=== PATIENT | male | born 1955 | race Caucasian/White ===

== ENCOUNTER → 2023-06-20 08:59 | Outpatient (REF) | payer MEDICARE, BC, SELFPAY ==
[2023-06-20 09:59] LABS: Hematocrit 42.9 % (39.0-52.0); Hemoglobin 14.4 g/dL (13.0-18.0); Mean Corp Hgb Conc. 33.6 g/dL (33.0-37.0); Mean Corpuscular Hgb 30.4 pg (27.0-31.0); Mean Corpuscular Volume 90.7 fL (80.0-94.0); Mean Platelet Volume 11.1 fL (7.4-10.4); Platelet Count 237 10^3/uL (130-400); Red Blood Cell Count 4.73 10^6/uL (4.70-6.10); Red Cell Dist. Width 14.1 % (11.5-14.5); White Blood Cell Count 4.8 10^3/uL (4.8-10.8)
[2023-06-20 12:37] LABS: Blood Urea Nitrogen 27 mg/dl (9-20); Calcium 9.4 mg/dl (8.4-10.2); Carbon Dioxide 28 mmol/L (22-30); Chloride 106 mmol/L (98-107); Glucose 96 mg/dl (70-99); Potassium 4.7 mmol/L (3.5-5.1); Sodium 137 mmol/L (135-145); eGFR > 60.00
== END ==
LOC: SDSPAT 08:59
PROVIDERS: ATTENDING PHYSICIAN Surgery; FAMILY PHYSICIAN Family Medicine; OTHER PHYSICIAN Internal Medicine Cardiovascular Disease
DX: Z01.818 Encounter for other preprocedural examination (principal)
CPT/HCPCS: 36415; 80048; 85027; 93005

== ENCOUNTER 2023-07-02 06:44 | Day surgery (SDC) | payer MEDICARE, BC, SELFPAY ==
[2023-06-20 09:18] VITALS: BMI 29.0
[2023-07-02] VITALS (8 sets, daily range): BP systolic 119–148; BP diastolic 67–91; BMI 29.0
--- NOTE | 2023-07-02 07:21 | HP.FOC2 ---
Addendum entered and electronically signed by Ankit Brennan MD 07/02/23 14:46:
#[id number]
Original Note:
Focused History & Physical
Chief Complaint
HPI:
Chief Complaint: Right inguinal hernia
HPI / Indication for Planned Procedure: Patient is a 68-year-old male recently seen in outpatient surgical evaluation who began taking note of swelling in the right inguinal region. He utilizes a truss to help to keep the swelling in place. Recent
outpatient surgical evaluation confirmed presence of a reducible right inguinal hernia.
Relevant Past Medical History: Other (BPH, lumbar DJD, history of PVCs, hyperlipidemia)
Relevant Social History: Negative
Relevant Family History: Negative
Relevant Past Surgical History: Positive for (Left shoulder surgery, bilateral knees, bilateral vein stripping, umbilical hernia pair with mesh 2012)
Review of Systems
Review of Pertinent Systems: All Systems Negative
Medication
See Medication form for detailed medications: Yes
Medication List (including Herbals & OTC):
Glucosamine 1500 Complex 1 tab PO DAILY 06/26/23
atorvastatin 20 mg tablet 20 mg PO HS 06/26/23
coenzyme Q10 300 mg capsule (Co Q-10) 300 mg PO DAILY 06/26/23
diclofenac sodium 75 mg tablet,delayed release 75 mg PO BID 06/26/23
metoprolol succinate 25 mg tablet,extended release 24 hr 12.5 mg PO BID 06/26/23
multivitamin 1 tab PO DAILY 06/26/23
omega-3 fatty acids 300 mg capsule 300 mg PO DAILY 06/26/23
Medications Reviewed: Yes
Allergies and Reactions
Patient has Allergies: No
Noted Allergies and Reactions:
Allergy/AdvReac Type Severity Reaction Status Date / Time
No Known Allergies Allergy Verified 06/26/23 11:02
Pertinent Physical Exam
All Other Systems: Negative
Head/Neck: Normal
Lungs: Normal
Heart: Normal
Abdomen: Other (Reducible right inguinal hernia, diastases without hernia)
Extremities: Normal
Neurological: Normal
Diagnosis / Assessment
68-year-old male presenting for scheduled operative correction symptomatic right inguinal hernia
Plan / Procedure
Robotic assisted laparoscopic repair right inguinal hernia with mesh
Anesthesia/Sedation to be done by Anesthesia Provider: Yes
[2023-07-02] MEDS: TYLENOL 1000 MG PO (08:22)
[2023-07-02] MEDS: NORMOSOL-R 1000 IV (08:22)
--- NOTE | 2023-07-02 09:36 | W.SUR.PREOP ---
Pre-Operative Surgical Note
-
I have examined this patient prior to the performance of the scheduled procedure.
The patient's condition is unchanged from the time of the current History and
Physical and the patient is able to undergo the scheduled procedure.
--- NOTE | 2023-07-02 11:44 | W.IMMPOSTOP ---
Surgical Immed Post Op Note
-
Primary Surgeon: Mika
Assisting Surgeon: Benitez Wilson PGY 1
Pre-op Diagnosis: Right inguinal hernia
Post-op Diagnosis: Right inguinal hernia, indirect
Procedure Performed: Robotic assisted laparoscopic repair right inguinal hernia with mesh; 3D max large mid weight
Anesthesia Type: GETA +0.25% Marcaine
Specimen / Cultures: None
Estimated Blood Loss: 6 mL
Complications: None immediate
Operative Findings: Right inguinal hernia, indirect. No additional incidental findings. No significant lipoma of cord. 3D max large mid weight mesh repair.
== END 2023-07-02 13:43 | disposition home or self-care (01) ==
LOC: SDS 06:44
PROVIDERS: ATTENDING PHYSICIAN Surgery
DX: K40.90 Unilateral inguinal hernia, without obstruction or gangrene, not specified as recurrent (principal)
CPT/HCPCS: 49650; C1781

== ENCOUNTER → 2024-02-21 09:15 | Outpatient (REF) | payer MEDICARE, BC, SELFPAY | LOC: PAVMRI 09:15 | PROVIDERS: ATTENDING PHYSICIAN Specialist; FAMILY PHYSICIAN Family Medicine | DX: G95.9 Disease of spinal cord, unspecified (principal) | CPT/HCPCS: 72156; A9575 ==

== ENCOUNTER → 2024-12-09 13:45 | Outpatient (REF) | payer MEDICARE, BC, SELFPAY | LOC: HWRCS 13:45 | PROVIDERS: ATTENDING PHYSICIAN Internal Medicine Cardiovascular Disease; FAMILY PHYSICIAN Family Medicine | DX: I77.819 Aortic ectasia, unspecified site (principal) | CPT/HCPCS: 93306 ==